=== PATIENT | female | born 1970 | race Asian ===

== ENCOUNTER 2023-08-27 12:12 | Emergency (ER) | payer BC, OTHER ==
[~2023-08-27] VITALS: Ht 154.9 cm; Wt 60.3 kg
[2023-08-27 12:30] VITALS: BP 153/97; PULSE 91; RESP 16; O2SAT 98
[2023-08-27] MEDS: HYDROcodone-ACET 10/325MG TAB PO ONE (12:41)
[2023-08-27 12:53] LABS: Basophils # (auto) 0 10 ^3/uL (0-0.2); Basophils % (auto) 0.6 % (0.0-2.0); Eosinophils # (auto) 0 10 ^3/uL (0-0.8); Hematocrit 41.6 % (36.0-46.0); Hemoglobin 13.7 g/dL (12.2-16.2); Lymphocytes % (auto) 40.3 % (10.0-50.0); Mean Corpuscular Hemoglobin 30.5 pg (28.0-32.0); Mean Corpuscular Volume 92.4 fL (80.0-100.0); Monocytes # (auto) 0.2 10 ^3/uL (0-1.3); Monocytes % (auto) 3.7 % (0.0-12.0); Neutrophils # (auto) 2.8 10 ^3/uL (1.6-8.6); Neutrophils % (auto) 54.4 % (37.0-80.0); Nucleated Red Blood Cells % 0.1 %; Red Blood Cells 4.51 10^6/uL (4.0-5.20); Red Cell Distribution Width 12.9 % (11.8-14.3); White Blood Cell 5.1 10^3/uL (4.4-10.8)
[2023-08-27 13:06] LABS: Urine Bacteria NONE SEEN /hpf (None Seen); Urine Blood 1+ /uL (Negative); Urine Clarity Clear (Clear); Urine Color Colorless (Yellow); Urine Protein, UAD Negative (Negative); Urine Specific Gravity 1.003 (1.001-1.035); Urine Urobilinogen Normal (Negative); Urine WBC 1 /hpf (0 - 5)
[2023-08-27 13:12] LABS: Alanine Aminotransferase 10 U/L (7-40); Alkaline Phosphatase 67 U/L (46-116); Anion Gap 10 (5-15); Aspartate Aminotransferase 19 U/L (13-40); BUN/Creatinine Ratio 8.2 (10.0-20.0); Bilirubin, Total 0.7 mg/dL (0.2-1.0); Blood Urea Nitrogen 6 mg/dL (9-23); Carbon Dioxide 25 mmol/L (20-30); Chloride 106 mmol/L (98-107); Glucose 103 mg/dL (74-106); Sodium 141 mmol/L (136-145); Total Protein 7.5 g/dL (5.7-8.2)
[2023-08-27] MEDS ORDERED: HYDROcodone-ACET 10/325MG TAB PO ONE (14:00)
== END 2023-08-27 14:00 | disposition home or self-care (01) ==
LOC: ER 12:12
DX: N83.201 Unspecified ovarian cyst, right side (principal)
CPT/HCPCS: 36415; 74176; 80053; 81001; 85025